=== PATIENT | female | born 1975 | race Caucasian/White ===

== ENCOUNTER 2022-03-04 12:22 | Emergency (ER) | payer BC ==
[2022-03-04 12:48] VITALS: O2SAT 97
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
[2022-03-04 14:13] VITALS: BP 121/73; PULSE 78
== END 2022-03-04 14:20 | disposition home or self-care (01) ==
LOC: ED 12:22
DX: S09.90XA Unspecified injury of head, initial encounter (principal); S16.1XXA Strain of muscle, fascia and tendon at neck level, initial encounter; S70.01XA Contusion of right hip, initial encounter; S40.011A Contusion of right shoulder, initial encounter; V89.2XXA Person injured in unspecified motor-vehicle accident, traffic, initial encounter; R51.9 Headache, unspecified; E11.9 Type 2 diabetes mellitus without complications; Z79.84 Long term (current) use of oral hypoglycemic drugs
CPT/HCPCS: 70450; 72125; 72192; 73030; 99285

== ENCOUNTER 2022-06-16 18:22 | Emergency (ER) | payer BC ==
[2022-06-16] MEDS ORDERED: Levofloxacin 500 MG Tablet PO ONE (19:29)
[2022-06-16] MEDS ORDERED: Levofloxacin 500 MG Tablet ONE (19:32)
[2022-06-16] MEDS ORDERED: TYLENOL 325 MG PO ONE (19:34)
--- NOTE | 2022-06-16 19:40 | ERPHSYRPT ---
- History of Present Illness Time Seen by Provider: 06/16/22 19:37 Source: patient Exam Limitations: no limitations Patient Subjective Stated Complaint: pt states she has had ear pain for 10 days, some exudate from ear that was yellow in color, none today. pt states " i have ringing in both ears, and I feel like I cant hear." pt states she has pain that is intermittent and "shooting seering pain that radiates from ear to throat." Triage Nursing Assessment: pt ambulated to room, without assistance, alert and oriented, pt is rubbing left ear. Physician History: Patient a 46-year-old female presents emergency department for evaluation of pain to the left ear. Ear pain started this morning at approximately 11:30 AMPatient states she occasionally Experiences tinnitus. Pain is localized. Patient believes she may have had a yellow discharge however there is no evidence of otitis externa or discharge during this exam.Patient describes occasional shooting sensation from her ear to her throat. No fever. No anter ior cervical lymphadenopathy.Symptoms are mild to moderate in intensity. No specific worsening or improving factors. Patient is otherwise healthy. She voices no other complaints or concerns at this time. Timing/Duration: gradual onset Severity: moderate ENT Location: ear (L) Prearrival Treatment: over the counter meds Modifying Factors: Improves With: nothing (Pain worsens during otoscopy.) Associated Symptoms: denies symptoms Allergies/Adverse Reactions: Penicillins Allergy (Verified 06/16/22 19:14) Home Medications: Metformin HCl 500 mg [Glucophage 500 MG] 1 tab PO BID 03/04/22 [History] Hx Tetanus, Diphtheria Vaccination/Date Given: Yes Hx Influenza Vaccination/Date Given: No Hx Pneumococcal Vaccination/Date Given: No Travel Risk - International Travel Have you traveled outside of the country in past 3 weeks: No - Coronavirus Screening Are you exhibiting any of the following symptoms?: No Close contact with a COVID-19 positive Pt in past 14-21 Days: No - Vaccine Status Have you recieved a Covid-19 vaccination: Yes 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[employer] - Vaccination Dates Date of 2cond Vaccination (if applicable): unknown - Review of Systems Constitutional: No Symptoms, No Fever, No Chills Eyes: No Symptoms Ears, Nose, & Throat: No Symptoms Respiratory: No Symptoms, No Cough, No Dyspnea Cardiac: No Symptoms, No Chest Pain, No Edema, No Syncope Abdominal/Gastrointestinal: No Symptoms, No Abdominal Pain, No Nausea, No Vomiting, No Diarrhea Genitourinary Symptoms: No Symptoms, No Dysuria Musculoskeletal: No Symptoms, No Back Pain, No Neck Pain Skin: No Symptoms, No Rash Neurological: No Symptoms, No Dizziness, No Focal Weakness, No Sensory Changes Psychological: No Symptoms Endocrine: No Symptoms Hematologic/Lymphatic: No Symptoms Immunological/Allergic: No Symptoms All Other Systems: Reviewed and Negative - Past Medical History Pertinent Past Medical History: Yes Endocrine Medical History: Diabetes Type II Psycho-Social History: Anxiety Female Reproductive Disorders: Fibroids - Past Surgical History Past Surgical History: Yes Neuro Surgical History: No Pertinent History Cardiac: No Pertinent History Respiratory: No Pertinent History Gastrointestinal: No Pertinent History Genitourinary: No Pertinent History Musculoskeletal: No Pertinent History Female Surgical History: Section, Tubal Ligation - Social History Smoking Status: Never smoker Exposure to second hand smoke: No Drug Use: none Patient Lives Alone: No Significant Family History: no pertinent family hx - Female History Hx Last Menstrual Period: 03/15/22 hysterectomy Hx Now: No - Nursing Vital Signs Nursing Vital Signs: Initial Vital Signs Temperature 98.4 F 06/16/22 19:02 Pulse Rate 88 06/16/22 19:02 Respiratory Rate 18 06/16/22 19:02 Blood Pressure 149/72 06/16/22 19:02 Pain Scale Pain Intensity 9 - Physical Exam General Appearance: no apparent distress, alert Eye Exam: bilateral eye: normal inspection, PERRL, EOMI Ear Exam: right ear: auricle normal, canal normal, TM normal, left ear: TM red, TM bulging, other (Pain during otoscopy.No mastoid pain or tenderness) Nasal Exam: normal inspection, No sinus tenderness Throat Exam: normal, pharynx normal, moist mucus membranes, No dental tenderness, No tonsillar exudate Neck Exam: normal inspection, non-tender, supple, full range of motion Cardiovascular/Respiratory Exam: chest non-tender, normal breath sounds, regular rate/rhythm Abdominal Exam: non-tender, soft, no organomegaly Neurologic Exam: alert, oriented x 3, sensation nml, No motor deficits Skin Exam: normal color, warm, dry SpO2 Interpretation: normal SpO2: 98 O2 Delivery: Room Air - Course Nursing assessment & vital signs reviewed: Yes Ordered Tests: Medication Summary Discontinued Medications Generic Name Dose Route Start Last Admin Trade Name Haily PRN Reason Stop Dose Admin Levofloxacin 500 mg 06/16/22 19:29 06/16/22 19:32 Levofloxacin 500 Mg Tablet PO 06/16/22 19:30 500 mg STAT ONE Administration - Progress Progress: improved Progress Note: Patient reassessed. Pain improved. Patient received Levaquin in our ED. A prescription for the same was forwarded to patient's pharmacy. No indication for further work-up at this time. Will discharge home. Patient agrees to follow-up with her primary care doctor within 48 hours for evaluation. Portions of this note were created with voice recognition technology. There may be grammatical, spelling, punctuation or sound alike errors 06/16/22 19:42 Counseled pt/family regarding: diagnosis, need for follow-up - Departure Departure Disposition: Home Clinical Impression: Otitis media Condition: Stable Critical Care Time: No Referrals: VANE BELLAMY MD [COURTESY STAFF] - Follow up/PCP as directed Additional Instructions: Discharge/Care Plan SAUMYASADNROJODIFUADHER PERES was seen on 06/16/22 in the Emergency Room. The patient was counseled regarding Diagnosis,Lab results, Imaging studies, need for follow up and when to return to the Emergency Room. Prescriptions given: Discharge Note I have spoken with the patient and/or caregivers. I have explained the patient's condition, diagnosis and treatment plan based on the information available to me at this time. I have answered the patient's and/or caregiver's questions and addressed any concerns. The patient and/or caregivers have as good understanding of the patient's diagnosis, condition and treatment plan as can be expected at this point. The vital signs have been stable. The patient's condition is stable and appropriate for discharge from the emergency department. The patient will pursue further outpatient evaluation with the primary care physician or other designated or consulting physician as outlined in the discharge instructions. The patient and/or caregivers are agreeable to this plan of care and follow-up instructions have been explained in detail. The patient and/or caregivers have received these instruction. The patient/and or caregivers are aware that any significant change in condition or worsening of symptoms should prompt an immediate return to this or the closest emergency department or call 911. Prescriptions: Levofloxacin [Levaquin 500 MG Tablet] 500 mg PO DAILY #7 tablet
[2022-06-16] MEDS ORDERED: TYLENOL 325 MG ONE (19:42)
[2022-06-16 19:47] VITALS: BP 104/66; PULSE 75; O2SAT 97
== END 2022-06-16 19:57 | disposition home or self-care (01) ==
LOC: ED 18:22
DX: H66.92 Otitis media, unspecified, left ear (principal); H92.02 Otalgia, left ear; E11.9 Type 2 diabetes mellitus without complications; Z79.84 Long term (current) use of oral hypoglycemic drugs
CPT/HCPCS: 99282; A9270-GY

== ENCOUNTER 2022-07-04 13:14 | Emergency (ER) | payer BC ==
[2022-07-04] MEDS ORDERED: TOBRAMYCIN-DEXAMETH OPHTH SUSP OP STA (14:02)
[2022-07-04] MEDS ORDERED: TobraDEX Eye Drops ONE (14:02)
[2022-07-04 14:05] VITALS: BP 140/73; PULSE 81
--- NOTE | 2022-07-04 14:08 | ERPHSYRPT ---
- History of Present Illness Time Seen by Provider: 07/04/22 14:03 Source: patient Exam Limitations: no limitations Physician History: Patient a 46-year-old female presents to our ED for evaluation of left ear pain. Patient was in our ED approximately 1 week ago. Patient was treated with antibiotics. Patient states her ear has been itching and she been scratching it with her finger. Since then she developed worsening pain of the left ear. Patient completed her course of antibiotics. Pain is constant. Patient was advised to come to our ED for evaluation. No drainage. No pain behind the ear. No trauma. Symptoms are progressive. Symptoms are moderate in intensity. Patient voices no other complaints or concerns at this time. Portions of this note were created with voice recognition technology. There may be grammatical, spelling, punctuation or sound alike errors Timing/Duration: gradual onset ENT Location: ear (L) Prearrival Treatment: no prearrival treatment Modifying Factors: Improves With: nothing Associated Symptoms: denies symptoms, No fever, No headache, No motion sickness, No nasal congestion/drainage Allergies/Adverse Reactions: Penicillins Allergy (Verified 07/04/22 13:49) Home Medications: Metformin HCl 500 mg [Glucophage 500 MG] 1 tab PO BID 03/04/22 [History] Hx Tetanus, Diphtheria Vaccination/Date Given: Yes Hx Influenza Vaccination/Date Given: No Hx Pneumococcal Vaccination/Date Given: No Travel Risk - Vaccine Status Have you recieved a Covid-19 vaccination: Yes 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[employer] - Vaccination Dates Date of 2cond Vaccination (if applicable): unknown - Review of Systems Constitutional: No Symptoms, No Fever, No Chills Eyes: No Symptoms Ears, Nose, & Throat: No Symptoms Respiratory: No Symptoms, No Cough, No Dyspnea Cardiac: No Symptoms, No Chest Pain, No Edema, No Syncope Abdominal/Gastrointestinal: No Symptoms, No Abdominal Pain, No Nausea, No Vomit ing, No Diarrhea Genitourinary Symptoms: No Symptoms, No Dysuria Musculoskeletal: No Symptoms, No Back Pain, No Neck Pain Skin: No Symptoms, No Rash Neurological: No Symptoms, No Dizziness, No Focal Weakness, No Sensory Changes Psychological: No Symptoms Endocrine: No Symptoms Hematologic/Lymphatic: No Symptoms Immunological/Allergic: No Symptoms All Other Systems: Reviewed and Negative - Past Medical History Pertinent Past Medical History: Yes Endocrine Medical History: Diabetes Type II Psycho-Social History: Anxiety Female Reproductive Disorders: Fibroids - Past Surgical History Past Surgical History: Yes Neuro Surgical History: No Pertinent History Cardiac: No Pertinent History Respiratory: No Pertinent History Gastrointestinal: No Pertinent History Genitourinary: No Pertinent History Musculoskeletal: No Pertinent History Female Surgical History: Section, Tubal Ligation - Social History Smoking Status: Never smoker Exposure to second hand smoke: No Drug Use: none Patient Lives Alone: No Significant Family History: no pertinent family hx - Physical Exam General Appearance: no apparent distress, alert Eye Exam: bilateral eye: normal inspection, PERRL, EOMI Ear Exam: right ear: auricle normal, canal normal, TM normal, left ear: other (Left otitis externa. The canal is swollen and tender.) Nasal Exam: normal inspection, No active bleeding Throat Exam: normal, pharynx normal, moist mucus membranes, No dental tenderness, No tonsillar exudate Neck Exam: normal inspection, supple, full range of motion, No non-tender Cardiovascular/Respiratory Exam: chest non-tender, normal breath sounds, regular rate/rhythm Abdominal Exam: non-tender, soft, no organomegaly Neurologic Exam: alert, oriented x 3, cooperative, sensation nml, No motor deficits Skin Exam: normal color, warm, dry SpO2 Interpretation: normal SpO2: 97 O2 Delivery: Room Air - Course Nursing assessment & vital signs reviewed: Yes - Progress Progress: improved Progress Note: Patient has a left otitis externa. No mastoid pain or tenderness. This is likely due to patient scratching the inside of her ear which occurred since last time she was in our ED. At that time patient had an otitis media and was treated with antibiotics. We will provide patient with referral to ENT for follow-up. Patient agrees to follow-up as discussed. Patient will follow-up within 48 hours for evaluation. She voices no other complaints or concerns at this time. Portions of this note were created with voice recognition technology. There may be grammatical, spelling, punctuation or sound alike errors 07/04/22 14:06 Counseled pt/family regarding: diagnosis, need for follow-up - Departure Departure Disposition: Home Clinical Impression: Otitis externa Condition: Stable Critical Care Time: No Referrals: MIMI BELLAMY MD [Primary Care Provider] - Follow up/PCP as directed KIN MADRID [NON-STAFF PHY W/O PRIVILEGES] - Follow up/PCP as directed Additional Instructions: Discharge/Care Plan ALEXFUAD PERES was seen on 07/04/22 in the Emergency Room. The patient was counseled regarding Diagnosis,Lab results, Imaging studies, need for follow up and when to return to the Emergency Room. Prescriptions given: Discharge Note I have spoken with the patient and/or caregivers. I have explained the patient's condition, diagnosis and treatment plan based on the information available to me at this time. I have answered the patient's and/or caregiver's questions and addressed any concerns. The patient and/or caregivers have as good understanding of the patient's diagnosis, condition and treatment plan as can be expected at this point. The vital signs have been stable. The patient's condition is stable and appropriate for discharge from the emergency department. The patient will pursue further outpatient evaluation with the primary care physician or other designated or consulting physician as outlined in the discharge instructions. The patient and/or caregivers are agreeable to this plan of care and follow-up instructions have been explained in detail. The patient and/or caregivers have received these instruction. The patient/and or caregivers are aware that any significant change in condition or worsening of symptoms should prompt an immediate return to this or the closest emergency department or call 911. Prescriptions: Ciprofloxacin HCl/Dexameth [Ciproflox-Dexameth Otic Susp] 7.5 ml OT TID 7 Days #7.5 ml
[2022-07-04 14:09] VITALS: O2SAT 97
== END 2022-07-04 14:20 | disposition home or self-care (01) ==
LOC: ED 13:14
DX: H60.92 Unspecified otitis externa, left ear (principal); H92.02 Otalgia, left ear; E11.9 Type 2 diabetes mellitus without complications; Z79.84 Long term (current) use of oral hypoglycemic drugs
CPT/HCPCS: 99281; A9270-GY